=== PATIENT | male | born 1975 | race Caucasian/White ===

== ENCOUNTER 2020-08-11 17:48 | Emergency (ER) | payer BC ==
[~2020-08-11] VITALS: Ht 190.5 cm; Wt 104.0 kg
[2020-08-11 18:25] VITALS: BP 152/67
[2020-08-11] MEDS ORDERED: OXYC-325 PO (18:47)
--- NOTE | 2020-08-11 18:47 | PHYS DOC ---
General Adult EDM: Chief Complaint: LOWER BACK PAIN OR INJURY HPI: HPI: Patient is a 44 year old male presents with a chief complaint of lower back pain. Patient states he has chronic lower back pain. Pain returned approximately 2 weeks ago L4-L5 region. Patient states he has a history of slipped disc. Patient's pain is primarily in the mid L4-L5 region with radiation to the right groin. Patient states today started to have numbness and tingling associated with discomfort. The numbness and tingling is in the buttocks region and radiates to just above his right knee. Patient rates pain 7/10. No loss of bowel or bladder. Patient ambulated into ER with steady gait. Patient was evaluated by neurosurgeon who placed him on pain medication (which she does not know the name of) a muscle relaxant and some steroids. Patient is requesting stronger pain medications. When asking the patient what recent pain medication he prescribed he states he does not know. States he previously was evaluated by an urgent care provider who placed him on hydrocodone that did not work. Review of Systems: Review of Systems: Review of systems: Constitutional symptoms- No fever, no chills. Eyes- No Discharge, No Visual Loss Respiratory symptoms- No shortness of breath, No wheezing, No Dyspnea on Exertion Cardiovascular Systems; No chest pain, No Palpitations, No syncope Gastrointestinal symptoms: NO abdominal pain, no nausea, no vomiting or diarrhea. Genitourinary symptoms: No dysuria. Musculoskeletal symptoms: Positive back pain No extremity pain. NEUROLOGICAL Symptoms: No headache, no generalized weakness; No focal Weakness Positive paresthesia Heart Score: C/O Chest Pain: N/A Risk Factors: Risk Factors: DM, Current or recent (<one month) smoker, HTN, HLP, family history of CAD, obesity. Risk Scores: Score 0 - 3: 2.5% MACE over next 6 weeks - Discharge Home Score 4 - 6: 20.3% MACE over next 6 weeks - Admit for Clinical Observation Score 7 - 10: 72.7% MACE over next 6 weeks - Early Invasive Strategies Allergies: Allergies: Allergies Coded Allergies Type Severity Reaction Last Updated Verified No Known Drug Allergies 08/11/20 No Physical Exam: PE: General: alert, no acute distress. Skin: warm, dry and intact. Head:: Normocephalic, atraumatic. Neck: Trachea midline. Eyes: EOMI, Normal conjunctiva, No drainage CARDIOVASCULAR: Regular rate and rhythm RESPIRATORY: No respiratory distress Back: Full range of motion. MUSCULOSKELETAL: Full range of motion of bilateral upper and lower extremities. GASTROINTESTINAL: Abdomen soft without rebound or guarding. NEUROLOGICAL: Alert and noted to person, place and time. No neurological deficits observed Psychiatric: Cooperative. Normal judgment EKG: EKG: [] Radiology/Procedures: Radiology/Procedures: [] Course & Med Decision Making: Course & Med Decision Making Pertinent Labs and Imaging studies reviewed. (See chart for details) [] Dragon Disclaimer: Dragon Disclaimer: This electronic medical record was generated, in whole or in part, using a voice recognition dictation system. Departure Departure Impression: Primary Impression: Back pain Additional Impressions: Paresthesia Sciatic leg pain Disposition: HOME / SELF CARE / HOMELESS Condition: STABLE Patient Instructions: Back Pain, Adult, Paresthesia, Sciatica Scripts Oxycodone HCl/Acetaminophen (Percocet 5-325 mg Tablet) 1 Each Tablet 1 TAB PO PRN TID PRN for back pain MDD 3 Tablet(s) for 5 Days, #15 TAB 0 Refills Prov: PINA GRAY DO 08/11/20 PINA GRAY DO August 11, 2020 18:47
== END 2020-08-11 19:00 | disposition home or self-care (01) ==
LOC: ER 17:48
DX: M54.40 Lumbago with sciatica, unspecified side (principal); R20.2 Paresthesia of skin; G89.29 Other chronic pain
CPT/HCPCS: 99283